=== PATIENT | female | born 1945 | race Two or more races ===

== ENCOUNTER 2020-12-31 13:56 | Emergency (ER) | payer OTHER ==
[~2020-12-31] VITALS: Ht 167.6 cm; Wt 72.6 kg
[2020-12-31] MEDS ORDERED: LIPITOR20 MG PO (14:19)
== END 2020-12-31 18:45 ==
LOC: ER 13:56
DX: S01.81XA Laceration without foreign body of other part of head, initial encounter (principal); S09.12XA Laceration of muscle and tendon of head, initial encounter; W19.XXXA Unspecified fall, initial encounter; Y93.89 Activity, other specified; Y92.89 Other specified places as the place of occurrence of the external cause; Y99.8 Other external cause status